=== PATIENT | male | born 1970 | race Caucasian/White ===

== ENCOUNTER 2017-08-20 17:09 | Emergency (ER) | payer SELFPAY, OTHER | END 2017-08-20 21:50 | disposition left against medical advice (07) | LOC: E/R 17:09 | DX: Z53.21 Procedure and treatment not carried out due to patient leaving prior to being seen by health care provider (principal) | CPT/HCPCS: 93005 ==

== ENCOUNTER 2018-07-22 11:54 | Emergency (ER) | payer OTHER ==
[2018-07-22] MEDS: KETOROLAC 60 MG INJ IM (12:33)
[2018-07-22] MEDS: HYDROCODONE/APAP (5/325) TAB PO (14:04)
== END 2018-07-22 14:54 | disposition home or self-care (01) ==
LOC: FTE 11:54
DX: M25.511 Pain in right shoulder (principal); J44.9 Chronic obstructive pulmonary disease, unspecified; Z87.891 Personal history of nicotine dependence
CPT/HCPCS: 73030; 73030-RT; 96372; 99284-25

== ENCOUNTER 2018-11-17 19:05 | Inpatient (IN) | payer OTHER ==
[2018-11-17 19:55] LABS: ADD MAN DIFF? NO
[2018-11-17 20:00] LABS: WHITE BLOOD COUNT 11.1 10^3/ul (4.8-10.8)
[2018-11-17 20:00] LABS: BASOPHILS % 0.4 % (0.0-2.0); EOSINOPHILS # 0.1 10^3/ul (0.0-0.5); EOSINOPHILS % 1.3 % (0.0-7.0); HEMATOCRIT 43.1 % (42.0-52.0); LYMPHOCYTES # 1.6 10^3/ul (0.8-2.9); LYMPHOCYTES % 14.6 % (15.0-51.0); MEAN CORPUSCULAR HEMOGLOBIN 28.1 pg (29.0-33.0); MEAN CORPUSCULAR HGB CONC 32.5 g/dl (32.0-37.0); MEAN CORPUSCULAR VOLUME 86.4 fl (82.0-101.0); MEAN PLATELET VOLUME 10.1 fl (7.4-10.4); MONOCYTE # 0.8 10^3/ul (0.3-0.9); MONOCYTES % 6.8 % (0.0-11.0); NEUTROPHIL # 8.5 10^3/ul (1.6-7.5); NEUTROPHILS % 76.5 % (39.0-77.0); PLATELET COUNT 256 10^3/UL (140-415); RED BLOOD COUNT 4.99 10^6/ul (4.70-6.10); RED CELL DISTRIBUTION WIDTH 13.1 % (11.5-14.5)
[2018-11-17 20:04] LABS: INR 0.89; PARTIAL THROMBOPLASTIN TIME 29.9 Sec (23.0-35.0); PROTIME 12.2 Sec (11.9-14.9)
[2018-11-17 20:08] LABS: ANION GAP 9 (5-13); BLOOD UREA NITROGEN 15 mg/dl (7-20); CALCIUM 8.6 mg/dl (8.4-10.2); CARBON DIOXIDE 27 mmol/L (21-31); CHLORIDE 105 mmol/L (97-110); CREATININE 0.71 mg/dl (0.61-1.24); Estimated GFR > 60 mL/min (>60); GLUCOSE 132 mg/dl (70-220); POTASSIUM 3.9 mmol/L (3.5-5.1); SODIUM 141 mmol/L (135-144)
[2018-11-17 20:20] LABS: TROPONIN-I < 0.012 ng/ml (0.000-0.120)
[2018-11-17] MEDS: DEXAMETHASONE 10 MG/ML 1 ML INJ IV (20:38)
[2018-11-17] MEDS: AZITHROMYCIN 500MG/NS (PMX) 250 ML IV (20:39)
[2018-11-17] MEDS: ALBUTEROL 0.083% (NEB) 2.5 MG/3 ML AMP INH (20:48)
[2018-11-17] MEDS: IPRATROPIUM (NEB) 0.5 MG/2.5 ML AMP INH (20:48)
[2018-11-17] MEDS: SOD CHLORIDE 0.9% 100 ML (20:57)
[2018-11-17] MEDS: IOHEXOL 100 ML (20:57)
[2018-11-17] MEDS: CEFTRIAXONE 1 GM/50 ML (PMX) 50 ML IVPB (22:26)
[2018-11-18] MEDS ORDERED: NACL 0.9% 3 ML SYG IV
[2018-11-18] MEDS ORDERED: HYDROCODONE/APAP (5/325) TAB PO
[2018-11-18] MEDS ORDERED: ONDANSETRON 4 MG INJ IV
[2018-11-18] MEDS: ACETAMINOPHEN 325 MG TAB PO ×2 (00:40→14:56)
[2018-11-18 06:54] LABS: ADD MAN DIFF? NO
[2018-11-18 06:57] LABS: ABNORMAL IP MESSAGE 1; EOSINOPHILS % 0.1 % (0.0-7.0); HEMATOCRIT 41.5 % (42.0-52.0); HEMOGLOBIN 13.7 g/dl (14.0-18.0); LYMPHOCYTES # 0.5 10^3/ul (0.8-2.9); LYMPHOCYTES % 5.4 % (15.0-51.0); MEAN CORPUSCULAR HEMOGLOBIN 28.5 pg (29.0-33.0); MEAN CORPUSCULAR VOLUME 86.3 fl (82.0-101.0); MEAN PLATELET VOLUME 10.1 fl (7.4-10.4); MONOCYTE # 0.1 10^3/ul (0.3-0.9); MONOCYTES % 0.5 % (0.0-11.0); NEUTROPHIL # 9.1 10^3/ul (1.6-7.5); NEUTROPHILS % 93.6 % (39.0-77.0); PLATELET COUNT 252 10^3/UL (140-415); POSITIVE DIFF @See below; RED BLOOD COUNT 4.81 10^6/ul (4.70-6.10); RED CELL DISTRIBUTION WIDTH 13.1 % (11.5-14.5)
[2018-11-18 06:57] LABS: WHITE BLOOD COUNT 9.7 10^3/ul (4.8-10.8)
[2018-11-18 07:22] LABS: ALANINE AMINOTRANSFERASE 41 IU/L (13-69); ALBUMIN/GLOBULIN RATIO 1.08; ALKALINE PHOSPHATASE 107 IU/L (42-121); ANION GAP 9 (5-13); ASPARTATE AMINO TRANSFERASE 26 IU/L (15-46); BILIRUBIN,INDIRECT 0.6 mg/dl (0-1.1); BILIRUBIN,TOTAL 0.6 mg/dl (0.2-1.3); BLOOD UREA NITROGEN 16 mg/dl (7-20); CALCIUM 8.9 mg/dl (8.4-10.2); CARBON DIOXIDE 24 mmol/L (21-31); CHLORIDE 108 mmol/L (97-110); CREATININE 0.57 mg/dl (0.61-1.24); Estimated GFR > 60 mL/min (>60); GLUCOSE 174 mg/dl (70-220); MAGNESIUM 1.9 mg/dl (1.7-2.5); POTASSIUM 4.2 mmol/L (3.5-5.1); SODIUM 141 mmol/L (135-144); TOTAL PROTEIN 7.7 g/dl (6.1-8.1)
[2018-11-18] MEDS: AZITHROMYCIN 500MG/NS (PMX) 250 ML IVPB (09:45)
[2018-11-18] MEDS: CEFTRIAXONE 1 GM/50 ML (PMX) 50 ML IVPB ×2 (09:46→20:12)
[2018-11-18] MEDS: predniSONE 10 MG TAB PO (09:57)
[2018-11-18] MEDS: ALBUTEROL/IPRATROPIUM (NEB) 3 ML AMP HHN (13:09)
[2018-11-18] MEDS: BUDESONIDE (NEB) 0.5MG/2ML AMP INH ×2 (13:09→19:35)
[2018-11-18] MEDS: ARFORMOTEROL TARTRATE 15MCG/2 ML AMP INH ×2 (13:26→19:35)
[2018-11-18] MEDS ORDERED: BISACODYL 10 MG SUPP PR (15:00)
[2018-11-19 06:44] LABS: ADD MAN DIFF? NO
[2018-11-19 06:49] LABS: ABNORMAL IP MESSAGE 1; BASOPHILS % 0.1 % (0.0-2.0); EOSINOPHILS % 0.1 % (0.0-7.0); HEMOGLOBIN 13.1 g/dl (14.0-18.0); LYMPHOCYTES # 1.6 10^3/ul (0.8-2.9); LYMPHOCYTES % 8.3 % (15.0-51.0); MEAN CORPUSCULAR HEMOGLOBIN 27.8 pg (29.0-33.0); MEAN PLATELET VOLUME 10.3 fl (7.4-10.4); MONOCYTE # 1.6 10^3/ul (0.3-0.9); MONOCYTES % 8.2 % (0.0-11.0); NEUTROPHIL # 16.1 10^3/ul (1.6-7.5); NEUTROPHILS % 82.7 % (39.0-77.0); PLATELET COUNT 261 10^3/UL (140-415); POSITIVE DIFF @See below; RED BLOOD COUNT 4.71 10^6/ul (4.70-6.10); RED CELL DISTRIBUTION WIDTH 13.3 % (11.5-14.5)
[2018-11-19 06:49] LABS: WHITE BLOOD COUNT 19.4 10^3/ul (4.8-10.8)
[2018-11-19] MEDS: ARFORMOTEROL TARTRATE 15MCG/2 ML AMP INH ×2 (07:45→19:46)
[2018-11-19] MEDS: BUDESONIDE (NEB) 0.5MG/2ML AMP INH ×2 (07:46→19:46)
[2018-11-19] MEDS: predniSONE 10 MG TAB PO (08:13)
[2018-11-19] MEDS: AZITHROMYCIN 500 MG TAB PO (08:13)
[2018-11-19] MEDS: CEFTRIAXONE 1 GM/50 ML (PMX) 50 ML IVPB (08:13)
[2018-11-19] MEDS: VORICONAZOLE 200 MG TAB PO ×2 (13:37→22:15)
[2018-11-19] MEDS: PIPER-TAZO 3.375 GM IV (PMX) 100 ML IVPB ×2 (13:37→22:15)
[2018-11-19] MEDS: ACETAMINOPHEN 325 MG TAB PO (22:22)
[2018-11-20] MEDS: PIPER-TAZO 3.375 GM IV (PMX) 100 ML IVPB ×3 (05:33→21:05)
[2018-11-20] MEDS: predniSONE 10 MG TAB PO (08:13)
[2018-11-20] MEDS: AZITHROMYCIN 500 MG TAB PO (08:13)
[2018-11-20] MEDS: VORICONAZOLE 200 MG TAB PO ×2 (08:13→21:04)
[2018-11-20] MEDS: ARFORMOTEROL TARTRATE 15MCG/2 ML AMP INH ×2 (10:07→19:52)
[2018-11-20] MEDS: BUDESONIDE (NEB) 0.5MG/2ML AMP INH ×2 (10:17→19:54)
[2018-11-21 05:32] LABS: ADD MAN DIFF? NO
[2018-11-21] MEDS: PIPER-TAZO 3.375 GM IV (PMX) 100 ML IVPB ×3 (05:36→22:23)
[2018-11-21 05:38] LABS: BASOPHILS % 0.3 % (0.0-2.0); EOSINOPHILS # 0.1 10^3/ul (0.0-0.5); EOSINOPHILS % 0.9 % (0.0-7.0); HEMOGLOBIN 13.1 g/dl (14.0-18.0); LYMPHOCYTES # 2.7 10^3/ul (0.8-2.9); MEAN CORPUSCULAR HEMOGLOBIN 28.4 pg (29.0-33.0); MEAN CORPUSCULAR HGB CONC 32.8 g/dl (32.0-37.0); MEAN CORPUSCULAR VOLUME 86.6 fl (82.0-101.0); MEAN PLATELET VOLUME 10.1 fl (7.4-10.4); MONOCYTE # 0.9 10^3/ul (0.3-0.9); MONOCYTES % 8.7 % (0.0-11.0); NEUTROPHIL # 6.9 10^3/ul (1.6-7.5); NEUTROPHILS % 64.3 % (39.0-77.0); PLATELET COUNT 264 10^3/UL (140-415); RED BLOOD COUNT 4.62 10^6/ul (4.70-6.10); RED CELL DISTRIBUTION WIDTH 13.7 % (11.5-14.5)
[2018-11-21 05:38] LABS: WHITE BLOOD COUNT 10.8 10^3/ul (4.8-10.8)
[2018-11-21 06:10] LABS: ANION GAP 6 (5-13); BLOOD UREA NITROGEN 17 mg/dl (7-20); CALCIUM 8.6 mg/dl (8.4-10.2); CARBON DIOXIDE 28 mmol/L (21-31); CHLORIDE 109 mmol/L (97-110); CREATININE 0.64 mg/dl (0.61-1.24); Estimated GFR > 60 mL/min (>60); GLUCOSE 92 mg/dl (70-220); POTASSIUM 3.9 mmol/L (3.5-5.1); SODIUM 143 mmol/L (135-144)
[2018-11-21] MEDS: BUDESONIDE (NEB) 0.5MG/2ML AMP INH ×2 (09:18→20:00)
[2018-11-21] MEDS: ARFORMOTEROL TARTRATE 15MCG/2 ML AMP INH ×2 (09:18→20:12)
[2018-11-21] MEDS: VORICONAZOLE 200 MG TAB PO ×2 (10:24→20:13)
[2018-11-21] MEDS: predniSONE 10 MG TAB PO (10:24)
[2018-11-21] MEDS: AZITHROMYCIN 500 MG TAB PO (11:29)
[2018-11-22] MEDS: PIPER-TAZO 3.375 GM IV (PMX) 100 ML IVPB ×2 (05:35→14:24)
[2018-11-22] MEDS: VORICONAZOLE 200 MG TAB PO (08:29)
[2018-11-22] MEDS: AZITHROMYCIN 500 MG TAB PO (08:29)
[2018-11-22] MEDS: predniSONE 10 MG TAB PO (08:30)
[2018-11-22] MEDS: ARFORMOTEROL TARTRATE 15MCG/2 ML AMP INH (09:49)
[2018-11-22] MEDS: BUDESONIDE (NEB) 0.5MG/2ML AMP INH (09:50)
== END 2018-11-22 15:36 | disposition home or self-care (01) | DRG 191 ==
LOC: PP2 11-21 02:00 → E/R 19:05 → PP2 11-21 12:21 → TEL 21:56
DX: J47.1 Bronchiectasis with (acute) exacerbation (principal); R04.2 Hemoptysis; J45.901 Unspecified asthma with (acute) exacerbation; J84.9 Interstitial pulmonary disease, unspecified; E66.3 Overweight; Z68.30 Body mass index [BMI] 30.0-30.9, adult; Z87.891 Personal history of nicotine dependence; Z86.11 Personal history of tuberculosis
CPT/HCPCS: 36415; 71045; 71275; 80048; 80053; 83735; 84100; 84484; 85025; 85610; 85730; 93005; 94640; 94664; 96374; 96375; 99285-25